=== PATIENT | female | born 1955 | race Caucasian/White ===

== ENCOUNTER 2025-04-24 08:40 | Emergency (ER) | payer MEDICARE, OTHER ==
[2025-04-24 09:13] LABS: BASOPHILS ABSOLUTE AUTO 0.02 10^3/uL (0.00-0.50); BASOPHILS PERCENT AUTO 0.2 % (0-1); HEMATOCRIT 40.1 % (37.0-47.0); HEMOGLOBIN 13.4 g/dL (12.0-16.0); IMMATURE GRAN ABSOLUTE AUTO 0.03 10^3/uL (0.00-0.49); IMMATURE GRAN PERCENT AUTO 0.3 % (0.0-4.9); LYMPHOCYTES ABSOLUTE AUTO 0.48 10^3/uL (0.60-5.00); LYMPHOCYTES PERCENT AUTO 5.6 % (24-44); MEAN CORPUSCULAR HEMOGLOBIN 32.4 pg (27.0-32.0); MEAN CORPUSCULAR HGB CONC 33.4 g/dL (32.0-36.0); MEAN CORPUSCULAR VOLUME 96.9 fL (83.0-97.0); MONOCYTES ABSOLUTE AUTO 1.01 10^3/uL (0.00-1.50); MONOCYTES PERCENT AUTO 11.8 % (0-10); NEUTROPHILS ABSOLUTE AUTO 7.04 x10^3/uL (1.80-8.00); NEUTROPHILS PERCENT AUTO 82.1 % (41-71); PLATELET COUNT,PLT 68 10^3/uL (150-400); RED BLOOD CELL COUNT 4.14 x10^6/uL (4.00-5.50); WHITE BLOOD CELL COUNT,WBC 8.6 10^3/uL (4.0-11.0)
[2025-04-24 09:32] LABS: ALANINE AMINOTRANSFERASE,ALT 37 U/L (12-78); ALBUMIN 3.9 g/dL (3.4-5.0); ALKALINE PHOSPHATASE 89 U/L (46-116); ASPARTATE AMNIOTRANSFERASE,AST 47 U/L (15-37); BILIRUBIN TOTAL 1.8 mg/dL (0.0-1.0); BLOOD UREA NITROGEN,BUN 11 mg/dL (7-18); CALCIUM 9.2 mg/dL (8.4-10.1); CARBON DIOXIDE,CO2 29 mmol/L (21-32); CHLORIDE,CL 99 mEq/L (98-106); CREATININE 0.9 mg/dL (0.6-1.0); GLUCOSE RANDOM 154 mg/dL (75-99); MAGNESIUM 1.7 mg/dL (1.8-2.4); POTASSIUM,K 3.5 mEq/L (3.5-5.0); SODIUM,NA 141 mEq/L (136-145)
[2025-04-24 09:33] LABS: ESTIMATED GFR 70 mL/min (>=60)
[2025-04-24] MEDS: Ondansetron 4 MG/2 ML SDV IVPUSH STA (09:53)
[2025-04-24] MEDS: Tranexamic Acid 1,000 MG in Sodium Chloride 0.9% 100 ML IV SCH (10:01)
[2025-04-24] MEDS: Desmopressin 20 MCG in Sodium Chloride 0.9% 100 ML IV ONE (10:04)
[2025-04-24] MEDS: levETIRAcetam 500 MG/5 ML SDV IVPUSH ONE (10:04)
[2025-04-24] MEDS: Tranexamic Acid 2,000 MG in Sodium Chloride 0.9% 100 ML IV SCH (10:07)
[2025-04-24] MEDS: Sodium Chloride 0.9% 100 ML ONE (10:07)
[2025-04-24] MEDS: diazePAM 10 MG/2 ML Syringe IVPUSH ONE (10:24)
[2025-04-24 10:33] LABS: PROTEIN TOTAL,TP 7.6 g/dL (6.4-8.2)
== END 2025-04-24 11:05 ==
LOC: CC.ED 08:40
DX: S06.5XAA Traumatic subdural hemorrhage with loss of consciousness status unknown, initial encounter (principal); S70.11XA Contusion of right thigh, initial encounter; S20.221A Contusion of right back wall of thorax, initial encounter; S30.1XXA Contusion of abdominal wall, initial encounter; X58.XXXA Exposure to other specified factors, initial encounter
CPT/HCPCS: 36415; 70450; 71045; 80053; 83735; 84484; 85025; 93005; 93010; 96374; 96375; 99284; 99285-25; J1953; J2405; J2597; J3360

== ENCOUNTER 2025-09-19 07:25 | Emergency (ER) | payer MEDICARE, OTHER ==
[2025-09-19 07:43] LABS: BASOPHILS ABSOLUTE AUTO 0.01 10^3/uL (0.00-0.50); BASOPHILS PERCENT AUTO 0.1 % (0-1); EOSINOPHILS ABSOLUTE AUTO 0.00 10^3/uL (0.00-1.50); EOSINOPHILS PERCENT AUTO 0.0 % (0-6); IMMATURE GRAN ABSOLUTE AUTO 0.04 10^3/uL (0.00-0.49); IMMATURE GRAN PERCENT AUTO 0.3 % (0.0-4.9); LYMPHOCYTES ABSOLUTE AUTO 0.36 10^3/uL (0.60-5.00); LYMPHOCYTES PERCENT AUTO 2.4 % (24-44); MONOCYTES ABSOLUTE AUTO 0.77 10^3/uL (0.00-1.50); MONOCYTES PERCENT AUTO 5.1 % (0-10); NEUTROPHILS ABSOLUTE AUTO 13.81 x10^3/uL (1.80-8.00); NEUTROPHILS PERCENT AUTO 92.1 % (41-71); PLATELET COUNT,PLT 67 10^3/uL (150-400); RED BLOOD CELL COUNT 3.90 x10^6/uL (4.00-5.50); WHITE BLOOD CELL COUNT,WBC 15.0 10^3/uL (4.0-11.0)
[2025-09-19 07:57] LABS: ALANINE AMINOTRANSFERASE,ALT 29 U/L (12-78); ASPARTATE AMNIOTRANSFERASE,AST 37 U/L (15-37); BILIRUBIN TOTAL 0.6 mg/dL (0.0-1.0); BLOOD UREA NITROGEN,BUN 15 mg/dL (7-18); CARBON DIOXIDE,CO2 22 mmol/L (21-32); CHLORIDE,CL 100 mEq/L (98-106); CREATINE KINASE,CK 235 U/L (21-215); CREATININE 0.6 mg/dL (0.6-1.0); GLUCOSE RANDOM 185 mg/dL (75-99); POTASSIUM,K 3.6 mEq/L (3.5-5.0); PROTEIN TOTAL,TP 7.1 g/dL (6.4-8.2); SODIUM,NA 141 mEq/L (136-145)
[2025-09-19 07:59] LABS: ESTIMATED GFR 98 mL/min (>=60)
[2025-09-19 08:05] LABS: INR 0.97 (0.92-1.18); PTT,PARTIAL THROMBOPLSTIN TIME 22.1 SEC (20.0-30.0)
[2025-09-19] MEDS: levETIRAcetam 500 MG/5 ML SDV IVPUSH ONE (08:30)
[2025-09-19 08:34] LABS: APPEARANCE,URINE CLEAR (CLEAR); GLUCOSE,URINE NEGATIVE (NEGATIVE); OCCULT BLOOD,URINE TRACE-INTACT (NEGATIVE)
[2025-09-19 08:49] LABS: SQUAMOUS EPITHELIAL CELLS,UR FEW /HPF (NOT SEEN)
== END 2025-09-19 09:35 ==
LOC: CC.ED 07:25
DX: S06.6XAA Traumatic subarachnoid hemorrhage with loss of consciousness status unknown, initial encounter (principal); S06.5XAA Traumatic subdural hemorrhage with loss of consciousness status unknown, initial encounter; I10 Essential (primary) hypertension; S00.11XA Contusion of right eyelid and periocular area, initial encounter; S00.03XA Contusion of scalp, initial encounter; W18.2XXA Fall in (into) shower or empty bathtub, initial encounter; Y92.002 Bathroom of unspecified non-institutional (private) residence as the place of occurrence of the external cause
CPT/HCPCS: 36415; 70450; 80053; 80307; 81001; 82550; 84484; 85025; 85610; 85730; 87086; 87088; 87186; 93005; 93010; 96365; 96375; 99284; 99285-25; J1953; J2597; J7030